=== PATIENT | male | born 1990 | race Two or more races ===

== ENCOUNTER 2016-06-06 08:10 | Emergency (ER) | payer OTHER ==
[~2016-06-06] VITALS: Ht 165.1 cm; Wt 69.9 kg
[2016-06-06 08:24] VITALS: BP 109/67
== END 2016-06-06 09:15 | disposition home or self-care (01) ==
LOC: ER 08:16
DX: H01.001 Unspecified blepharitis right upper eyelid (principal)
CPT/HCPCS: 99283; A4606; Z7610

== ENCOUNTER 2017-07-22 09:02 | Emergency (ER) | payer OTHER ==
[~2017-07-22] VITALS: Ht 167.6 cm; Wt 74.4 kg
[2017-07-22 09:05] VITALS: BP 137/89
[2017-07-22] MEDS ORDERED: BENZONATATE 100 MG CAPSULE PO PRN (09:30)
== END 2017-07-22 11:01 | disposition home or self-care (01) ==
LOC: ER 09:03
DX: J06.9 Acute upper respiratory infection, unspecified (principal)
CPT/HCPCS: 71045-TC; 86403-TC; 87070-TC; A4606; Z7610